=== PATIENT | female | born 1945 | race Caucasian/White ===

== ENCOUNTER → 2024-01-24 | Outpatient (CLI) | payer OTHER ==
--- NOTE | 2024-01-24 11:29 | HMCIMG ---
CHEST 2VWS HISTORY: Shortness of breath COMPARISON: None FINDINGS: Frontal and lateral projections of the chest were obtained. There is no acute pulmonary infiltrates or failure. The heart is not enlarged. Aortic calcifications are seen. There is hiatal hernia. Degenerative changes are seen of the thoracolumbar spine. IMPRESSION: 1. No acute pulmonary infiltrates. Hiatal hernia.
== END | disposition home or self-care (01) ==
LOC: OIH 10:54
PROVIDERS: ATTEND Internal Medicine
DX: R06.02 Shortness of breath (principal); K44.9 Diaphragmatic hernia without obstruction or gangrene; M47.815 Spondylosis without myelopathy or radiculopathy, thoracolumbar region; I70.0 Atherosclerosis of aorta
CPT/HCPCS: 71046